=== PATIENT | female | born 1995 | race Caucasian/White ===

== ENCOUNTER 2018-12-04 09:06 | Day surgery (SDC) | payer OTHER ==
[2018-12-03 15:42] VITALS: BMI 20.9
[2018-12-03 16:20] LABS: Hemoglobin 13.1 g/dL (12.0-16.0); Mean Corpuscular HGB CONC 35.5 g/dL (32.0-36.0); Mean Corpuscular Hemoglobin 31.4 pg (27.0-31.0); Mean Corpuscular Volume 88.5 fL (78.0-98.0); Mean Platelet Volume 6.1 fL (7.4-10.4); Platelet Count 312 thou/uL (130-400); RBC Distribution Width 11.3 % (11.5-14.5); Red Blood Cell (RBC) Count 4.15 mill/uL (4.20-5.40); White Blood Cell (WBC) Count 8.5 thou/uL (4.8-10.8)
--- NOTE | 2018-12-03 19:54 | HP ---
DATE OF OPERATION: 12/04/2018. CHIEF COMPLAINT: Missed at 8 weeks. HISTORY OF PRESENT ILLNESS: This is a 23-year-old G2, P1, at 12 weeks and 2 days by last menstrual period, consistent with an 8-week ultrasound, who presented to clinic on 12/02/2018 without complaints. She would have been 12 weeks and 1 day; however, the patient had ultrasound that showed no cardiac activity and pole measuring 8 weeks, consistent with missed . She desired to undergo definitive management with dilation and curettage. PAST MEDICAL HISTORY: 1. History of preeclampsia at term. 2. History of vesicoureteral reflux as a child. 3. History of pyelonephritis. PAST SURGICAL HISTORY: Surgery of elbow. SOCIAL HISTORY: Negative for smoking, alcohol, or drug use. FAMILY HISTORY: Breast cancer in great grandmother. Colon cancer in maternal grandfather. OBSTETRICAL HISTORY: G2, P1, prior at 41 weeks with preeclampsia. GYNECOLOGICAL HISTORY: No abnormal Pap smears. No STDs. Menses are monthly. Last menstrual period 09/08/2018. CURRENT MEDICATIONS: vitamins p.o. daily. ALLERGIES: MORPHINE AND RED FOOD COLOR. REVIEW OF SYSTEMS: Negative. PHYSICAL EXAMINATION: VITAL SIGNS: Blood pressure 110/60, pulse 93, respirations 18, weight 118, height 5 feet 4 inches, BMI is 20.3. GENERAL: No acute distress. CARDIAC: Regular rate and rhythm. LUNGS: Clear to auscultation bilaterally. ABDOMEN: Soft, nontender, and nondistended. EXTREMITIES: No edema, cyanosis, or clubbing. PELVIC: Deferred to OR. LABORATORY DATA: Blood type O positive. Antibody screen negative. Recent hemoglobin 13.2. ASSESSMENT AND PLAN: This is a 23-year-old G2, P1 at 12 weeks and 2 days with missed . pole measuring 8 weeks with no cardiac activity. The patient was presented options of expectant management versus medical management versus surgery with dilation and curettage. She desires to undergo suction D and C. Risks, benefits, and alternative were discussed with the patient. She voiced understanding and wishes to proceed. She will follow up in the office in 2 weeks postoperative time. Job ID: [id number]
[2018-12-04] MEDS ORDERED: Midazolam HCl 2 mg/2 ml Vial ONE ×2 (10:20→11:07)
[2018-12-04] MEDS ORDERED: Fentanyl 100 MCG/2 ML VIAL ONE (11:08)
[2018-12-04] MEDS ORDERED: Misoprostol 200 MCG TAB ONE (11:39)
[2018-12-04] MEDS ORDERED: Promethazine HCl 25 MG/ML VIAL ONE (12:39)
[2018-12-04] MEDS ORDERED: PHENYLEPHRINE-NS 100 MCG/ML 10 ML SYRINGE ONE (12:58)
[2018-12-04] MEDS ORDERED: Ketorolac Tromethamine 30 MG/ML VIAL ONE (12:58)
[2018-12-04] MEDS ORDERED: Lidocaine 1% PF 5 ML VIAL ONE (12:58)
[2018-12-04] MEDS ORDERED: PROPOFOL 200 MG/20 ML VIAL ONE (12:58)
[2018-12-04] MEDS ORDERED: Dexamethasone 20 MG/5 ML VIAL ONE (12:58)
[2018-12-04] MEDS ORDERED: Ondansetron PF 4 MG/2 ML Vial ONE (12:58)
[2018-12-04] MEDS ORDERED: Ondansetron PF 4 MG/2 ML Vial SLOW IVP PRN (13:23)
[2018-12-04] MEDS ORDERED: HYDROcodone/Acetaminophen 5/325 mg Tablet PO PRN ×2 (13:26→13:27)
[2018-12-04] MEDS ORDERED: Doxycycline 100 MG CAP PO SCH (13:30)
[2018-12-04 14:10] LABS: Hemoglobin 9.5 g/dL (12.0-16.0)
[2018-12-04] MEDS ORDERED: Acetaminophen 500 MG TAB ONE (16:01)
[2018-12-04] MEDS ORDERED: diphenhydrAMINE 25 MG CAP ONE (16:01)
[2018-12-04 16:08] LABS: Hemoglobin 9.4 g/dL (12.0-16.0)
[2018-12-04] MEDS ORDERED: Ondansetron ODT 4 MG TAB ONE (17:49)
--- NOTE | 2018-12-04 18:39 | OP ---
DATE OF PROCEDURE: 12/04/2018 PREOPERATIVE DIAGNOSIS: Missed at 8 weeks. POSTOPERATIVE DIAGNOSIS: Missed at 8 weeks. PROCEDURE PERFORMED: Suction dilation and curettage. ANESTHESIA: General endotracheal. CHIEF GAUGER SURGEON: Ant Falcon MS-III. ESTIMATED BLOOD LOSS: 1000 mL. IVF: 1500 mL of crystalloid. URINE OUTPUT: 50 mL of clear urine at the beginning. PATHOLOGY: Products of conception. COMPLICATIONS: None. DRAINS: None. FINDINGS: On exam under anesthesia, a mobile 9-week size uterus present. Cervix was normal appearing. On suctioning, there was a large amount of products of conception that were all sent for final pathology. There was brisk bleeding present in the beginning of the surgery, that improved with sharp curettage and Cytotec 800 mcg and final massage. At the conclusion of the procedure, there was scant bleeding from the cervix and the uterus was well contracted on bimanual exam. DESCRIPTION OF PROCEDURE: The patient was taken to the operating room, where general anesthesia was obtained without difficulty. The patient was prepped and draped in the sterile fashion in the dorsal lithotomy position. The bladder was catheterized and a speculum was placed in the vagina. The anterior lip of the cervix was grasped with single-tooth tenaculum. The cervix was then progressively dilated with Renard dilators. The 8-mm suction curette was assembled and the pressure was tested to a maximum pressure of 50 mmHg. The 8-mm suction was then passed to the uterine fundus. The pressure was applied in a circular motion of the suction curette, was performed and slowly withdrawn. Initially, the products of conception started coming. The suction curette was again passed and this was performed x3 until no further products of conception were noted. There was brisk bleeding at this time. Sharp curettage was performed and additional membrane like structures were delivered with a sharp curettage. At that time, Cytotec 800 mcg was called for. The suction curette was then passed to the uterine fundus again and suction out more products. At that time, Cytotec 800 mcg was placed in the rectum and there was still bleeding with the suction curettage. There was not a large amount of bleeding with just observing from the cervix. Sharp curette was performed again and improvement in the gritty texture in all 4 quadrants of the uterus was noted. The suction was then passed again and was still less, but some bleeding present. The uterus was felt to contract down based upon the reduced passage of the suction curette into the uterine fundus. The instruments were then removed out of the vagina. Fundal massage was performed of the uterus and it was felt to contract down. The speculum was then replaced back into the vagina and the tenaculum was replaced and the suction curette was passed and there was minimal bleeding. However, a very small piece of products was noted. This was passed until essentially no blood was passing into the suction tubing. At that time, it was felt that all products were removed and there was some bleeding from the cervix; however, there was some trauma to the cervix from the passing of the curette and from the tenaculum. The tenaculum was removed and Bovie cautery was performed of the cervix on these bleeding friable pieces of the ectocervix. Fundal massage was then performed with the use of a sponge stick in the vagina and hand on the abdomen. The cervix was then visualized and observed for several minutes. There was scant to no bleeding coming from the cervix at that time. Therefore, all instruments were removed out of the vagina. The patient tolerated the procedure well. Sponge and needle counts correct x2. The patient was taken to recovery room in stable condition. Job ID: [id number]
== END 2018-12-04 18:05 | disposition home or self-care (01) ==
LOC: SDC 09:06
PROVIDERS: ATTEND Student in an Organized Health Care Education/Training Program
PROC: 10D17Z9 Manual Extraction of Products of Conception, Retained, Via Natural or Artificial Opening (ICD-10-PCS; principal; 2018-12-04)
DX: O02.1 Missed abortion (principal); Z3A.08 8 weeks gestation of pregnancy; Z79.899 Other long term (current) drug therapy; Z88.5 Allergy status to narcotic agent; Z91.02 Food additives allergy status
CPT/HCPCS: 36415; 36430; 85014; 85018; 85027; 86850; 86900; 86901; 88305; J1100; J1885; J2001; J2250; J2405; J2550; J2704; J3010; P9016; Q0162